=== PATIENT | female | born 1945 | race Caucasian/White ===

== ENCOUNTER 2017-01-26 07:44 | Emergency (ER) | payer MEDICARE, OTHER ==
[~2017-01-26] VITALS: Ht 170.2 cm; Wt 72.6 kg
[~2017-01-26 07:44] MED LIST: PRD20T PO
[2017-01-26 08:09] LABS: BILIRUBIN,URINE NEGATIVE (NEGATIVE); KETONES,URINE 1+ (NEGATIVE); LEUKOCYTE ESTERASE ,URINE 3+ (NEGATIVE); NITRITE,URINE POSITIVE (NEGATIVE); PH,URINE 7 (5-9); PROTEIN,URINE 4+ (NEGATIVE); UROBILINOGEN,URINE NORMAL (NORMAL)
[2017-01-26 08:23] LABS: WBC,URINE TNTC /HPF
--- NOTE | 2017-01-26 08:23 | ED GU-Female ---
General Chief Complaint: -Female Stated Complaint: UTI SYMPTOMS Nursing Triage Note: PT STATES URINARY S/S THAT STARTED YESTERDAY. Nursing Sepsis Screen: No Definite Risk Source: patient Exam Limitations: no limitations History of Present Illness Time seen by provider: 08:12 Initial Comments Here with report of urinary frequency and burning. Started yesterday and worsened overnight. Has tried to drink water and take herbal medicine but this has not helped. Denies fever or chills. Has had a few loose stools. Denies vomiting. Timing/Duration: yesterday Severity/Quality: moderate, burning Location: urethral Radiation: suprapubic Activities at Onset: none Associated Symptoms: dysuria, No fever/chills, No nausea/vomiting, urinary frequency Allergies and Home Medications Allergies Coded Allergies: codeine (Verified Allergy, Intermediate, NAUSEA, 08/04/15) Home Medications Cephalexin 500 Mg Tablet, 500 MG PO BID, #14 Ref 0 Prescribed by: XU VÁSQUEZ on 01/26/17823 Phenazopyridine HCl 100 Mg Tablet, 100 MG PO Q8H PRN for pain, #6 Prescribed by: XU VÁSQUEZ on 01/26/1724 Constitutional: see HPI, No chills, No fever Respiratory: no symptoms reported Cardiovascular: no symptoms reported Psychiatric/Neurological: No Symptoms Reported Past Qpjcwla-Nibecw-Oxvwgp Hx Patient Social History Alcohol Use: Rarely Uses Recreational Drug Use: No Smoking Status: Former Smoker Type Used: Cigarettes Recent Foreign Travel: No Contact w/Someone Who Travel: No Recent Infectious Disease Expo: No Recent Hopitalizations: No Immunizations Up To Date Date of Pneumonia Vaccine: Jul 14, 2016 Date of Influenza Vaccine: Jul 14, 2016 Seasonal Allergies Seasonal Allergies: No Surgeries HX Surgeries: Yes Surgeries: Tonsillectomy Respiratory Hx Respiratory Disorders: No Cardiovascular Hx Cardiac Disorders: No Neurological Hx Neurological Disorders: No Reproductive System : No Hx Reproductive Disorders: No Genitourinary Hx Genitourinary Disorders: No Gastrointestinal Hx Gastrointestinal Disorders: No Musculoskeletal Hx Musculoskeletal Disorders: Yes (KNEE INJURY) Endocrine Hx Endocrine Disorders: No HEENT HX ENT Disorders: No Cancer Hx Cancer: No Psychosocial Hx Psychiatric Problems: No Integumentary HX Skin/Integumentary Disorder: No Blood Transfusions Hx Blood Disorders: No Reviewed Nursing Assessment Reviewed/Agree w Nursing PMH: Yes Family Medical History Significant Family History: No Pertinent Family Hx Physical Exam Vital Signs Vital Sign - Last 12Hours 01/26/17 07:51 Temp 97.0 Pulse 97 Resp 20 B/P (MAP) 179/107 O2 Delivery Room Air Capillary Refill : Less Than 3 Seconds General Appearance: WD/WN, no apparent distress Cardiovascular: regular rate, rhythm, no murmur Respiratory: lungs clear, normal breath sounds Gastrointestinal: non tender, soft Neurologic/Psychiatric: alert, oriented x 3 Skin: normal color, warm/dry Progress/Results/Core Measures Results/Orders Lab Results Laboratory Tests Test 01/26/17 07:50 Range/Units Urine Color RED H Urine Clarity VERY CLOUDY H Urine pH 7 5-9 Urine Specific [place] 1.015 L 1.016-1.022 Urine Protein 4+ NEGATIVE Urine Glucose (UA) NEGATIVE NEGATIVE Urine Ketones 1+ H NEGATIVE Urine Nitrite POSITIVE H NEGATIVE Urine Bilirubin NEGATIVE NEGATIVE Urine Urobilinogen NORMAL NORMAL MG/DL Urine Leukocyte Esterase 3+ H NEGATIVE Urine RBC (Auto) 5+ H NEGATIVE Urine RBC TNTC H /HPF Urine WBC TNTC H /HPF Urine Crystals NONE /LPF Urine Bacteria MODERATE H /HPF Urine Casts NONE /LPF Urine Mucus NEGATIVE /LPF Urine Culture Indicated YES My Orders Orders - XU VÁSQUEZ MD Ua Culture If Indicated (01/26/17 07:49) Phenazopyridine Tablet (Pyridium Tablet) (01/26/17 08:30) Urine Culture (01/26/17 07:50) Vital Signs/I&O Vital Sign - Last 12Hours 01/26/17 07:51 Temp 97.0 Pulse 97 Resp 20 B/P (MAP) 179/107 O2 Delivery Room Air Blood Pressure Mean: 131 Progress Note : Progress Note Seen and evaluated. UA ordered. Pyridium 100 mg by mouth. Discharged home with return precautions. Patient verbalize understanding instructions and agreement with plan. Departure Impression Impression: Primary Impression: Urinary tract infection Qualified Codes: N30.01 - Acute cystitis with hematuria Disposition: HOME, SELF-CARE Condition: Improved Departure-Patient Inst. Decision time for Depature: 08:22 Referrals: SEAMUS GRIFFIN DO (PCP/Family) Primary Care Physician Patient Instructions: Urinary Tract Infection, Adult (DC) Add. Discharge Instructions: All discharge instructions reviewed with patient and/or family. Voiced understanding. Take medications as directed. Follow-up with your Dr. in a few days for recheck. Return for worse pain, fever, vomiting, weakness, breathing problems or other concerns as needed. Drink plenty of fluids. Scripts Phenazopyridine HCl (Pyridium) 100 Mg Tablet 100 MG PO Q8H Y for pain, #6 TAB Prov: XU VÁSQUEZ MD 01/26/17 Cephalexin (Cephalexin) 500 Mg Tablet 500 MG PO BID, #14 TAB 0 Refills Prov: XU VÁSQUEZ MD 01/26/17 XU VÁSQUEZ MD Jan 26, 2017 08:23
[2017-01-26] MEDS ORDERED: PHEN-639 PO (08:24)
[2017-01-26] MEDS ORDERED: CEPH500T PO (08:24)
[2017-01-26] MEDS ORDERED: PHENAZOPYRIDINE 100 MG (PYRIDIUM) TABLET PO ONE (08:30)
[2017-01-26 08:40] VITALS: BP 165/90
== END 2017-01-26 08:40 | disposition home or self-care (01) ==
LOC: EDUNIT# 07:44 → ER 07:46
DX: N39.0 Urinary tract infection, site not specified (principal)
CPT/HCPCS: 81000; 87088; 87186; 99282

== ENCOUNTER → 2017-10-17 | Outpatient (CLI) | payer MEDICARE, OTHER ==
[~2017-10-17] MED LIST changes: +CEPH500T PO; +PHEN-639 PO
--- NOTE | 2017-10-17 10:16 | Diagnostic Imaging Report ---
PROCEDURE: US Carotid Duplex Bilateral. Indication: Transient ischemic attack. Altered mental status. TECHNIQUE: Multiple real-time images with color Doppler imaging were performed. Doppler velocity and waveform data were obtained. The cervical carotid and vertebral arteries were evaluated. FINDINGS: Color and grayscale images demonstrate very mild scattered atheromatous plaque involving the carotid arteries, particularly at the carotid bifurcations. However, there are no abnormally elevated velocities or findings to suggest significant stenosis of the carotid arteries at this time. On the right, peak systolic ICA/CCA ratio 1.02 and on left 1.07. External carotid arteries are patent. Vertebral arteries are with antegrade direction of flow. IMPRESSION: 1. Carotid Doppler imaging demonstrates no findings to suggest a hemodynamically significant stenosis at this time. Dictated by: Dictated on workstation # [id number]
--- NOTE | 2017-10-17 11:29 | Diagnostic Imaging Report ---
PROCEDURE: CT head without contrast. TECHNIQUE: Multiple contiguous axial images were obtained through the brain without the use of intravenous contrast. INDICATION: Dementia, TIAs. COMPARISON: Exam compared to 02/11/2016. FINDINGS: Patchy substantial and extensive bilateral periventricular and subcortical white matter disease is hypodense and while nonspecific is often attributed to the sequelae of chronic small vessel disease and is advanced in this patient. Cerebral cortical atrophy present, probably at least mildly progressed from the prior. The ventricular caliber is congruent with the degree of sulcation. There was no josh hydrocephalus. There is no sulcal effacement, and no findings felt suggestive of acute cortical edema. No mass or mass effect. There is no hemorrhage. Basilar cisterns are patent. IMPRESSION: Extensive chronic white matter disease stable. Cerebral cortical atrophy mildly progressed. No hemorrhage or acute appearing pathology. Dictated by: Dictated on workstation # [id number]
== END ==
LOC: RAD 08:39
PROVIDERS: ATTEND Family Medicine
DX: G45.9 Transient cerebral ischemic attack, unspecified (principal); F03.90 Unspecified dementia, unspecified severity, without behavioral disturbance, psychotic disturbance, mood disturbance, and anxiety; G31.9 Degenerative disease of nervous system, unspecified; R90.82 White matter disease, unspecified; R41.82 Altered mental status, unspecified
CPT/HCPCS: 70450; 93880